=== PATIENT | female | born 1960 | race Caucasian/White ===

== ENCOUNTER 2016-09-18 14:53 | Inpatient (IN) | payer OTHER ==
--- NOTE | ~2016-09-18 | DS ---
Discharge Summary [facility] [address] [place]. [address] NAME: MANJULA CASEY : 58 STATUS : DIS IN PAT#: [id number] AGE: 56 ADM/REG DATE : 09/18/16 MR#: [id number] REPORT SERV DATE: 10/01/16 DICTATED BY: JIMMIE GREEN DATE: 09/30/16 REPORT STATUS : Draft TRANSCRIBED BY: ABIMAEL DATE: 09/30/16 Data Collection from hospitalization DISCHARGE DIAGNOSES: Acute sigmoid diverticulitis. CONSULTATIONS: None. PROCEDURES PERFORMED: CT scan of the abdomen and pelvis without contrast, 09/18/2016. MEDICATIONS: Levaquin 750 mg daily, Flagyl 500 mg three times a day, Zofran 4 mg every 4 to 6 hours as needed, and Percocet 5/325 one tablet every 4 to 6 hours as needed. CONDITION ON DISCHARGE: Stable. DISPOSITION: The patient was discharged home on a soft diet with activities as instructed. She would follow up with me, 09/29/2016. HOSPITAL COURSE: This is a 56-year-old female who presented to the emergency department with the relatively acute onset of lower abdominal pain bilaterally. The patient had never had this sort of problem in the past. She had had no recent travel or exposure to people with any digestive problems or GI illnesses. CT scan of the abdomen and pelvis showed evidence of sigmoid colon diverticulitis with inflammatory stranding and small air bubbles in the mesentery consistent with microperforations. She was admitted to the hospital at this time for further evaluation and treatment. Upon admission, IV antibiotics were started. We would manage her with fluid and electrolyte monitoring and replacement of pain and nausea medications and watch for improvement. Obviously, if she fails to improve or worsen, she may need consideration for surgical interventions. The following day, her temperature had increased during the night. She did have some fatigue. She had some loose explosive stools. Full liquids were being given. IV fluids were decreased. Over the next couple of days, her T-max was 99.2. She still had some increased pain in the evening. White count was 10.5. Her abdomen was softer and less tender. She was going to be changed to oral antibiotics. Her diet was advanced. Discharge planning was performed. On 09/22/2016, she was afebrile. She did have some episodes of hypotension. She seemed to be tolerating some solids. Discharge instructions were given. Due to her improved and stable condition, she was discharged home with the above-stated instructions. Information collected by: Hanna Reyes I submit the above information as my discharge summary. FAUSTO/ABIMAEL Jimmie Green M.D. / [id number] Discharge Summary [address] [address] NAME: MANJULA CASEY : 58 STATUS : DIS IN PAT#: [id number] AGE: 56 ADM/REG DATE : 09/18/16 MR#: [id number] REPORT SERV DATE: 10/01/16 DICTATED BY: JIMMIE GREEN DATE: 09/30/16 REPORT STATUS : Draft TRANSCRIBED BY: ABIMAEL DATE: 09/30/16 CC: Marko Grier M.D.
--- NOTE | ~2016-09-18 | HP ---
History And Physical [place] [id number] [facility] [place]. [address] NAME: MANJULA CASEY : 58 STATUS : ADM IN [facility]#: [id number] AGE: 56 ADM/REG DATE : 09/18/16 MR#: [id number] REPORT SERV DATE: 09/19/16 DICTATED BY: JIMMIE GREEN DATE: 09/19/16 REPORT STATUS : Draft TRANSCRIBED BY: MODL DATE: 09/19/16 DATE OF ADMISSION: 09/18/2016 HISTORY: A 56-year-old, white female, very healthy, presented to the ED this evening with relatively acute onset of lower abdominal pain bilaterally. The patient had never had this sort of problem. She has had no recent travel or exposure to people with any digestive problems or GI illnesses. CT evaluation and lab work have shown evidence of sigmoid colon diverticulitis with inflammatory stranding and small air bubbles in the mesentery consistent with microperforations. PAST MEDICAL HISTORY: Essentially negative. She does not have any major health issues. PAST SURGICAL HISTORY: Negative. ALLERGIES: NONE. HOME MEDICATIONS: None. SOCIAL HISTORY: She is . Lives with her . Nonsmoker. Nondrinker. LABORATORY DATA: WBCs 12.1 thousand without left shift. H and H 18.8 and 53.2, potassium 4.2, glucose 108, total bilirubin 1.4. LFTs slightly elevated including transaminases and alkaline phosphatase. PHYSICAL EXAMINATION: GENERAL: A pleasant and alert female, obviously uncomfortable. HEENT: Within normal limits. There is no thyromegaly, nodularity, nodes, masses, or tenderness. No scleral icterus. CARDIOVASCULAR: Regular rate and rhythm without murmur or gallop. CHEST: Clear bilaterally without rales, rhonchi, or rub. BREASTS: Not examined. ABDOMEN: Shows no distention or tympany. She has positive bowel sounds. There is no abdominal wall scar or hernia palpated. No hepatosplenomegaly or masses. She definitely has tenderness with guarding in the pelvis bilaterally, left greater than right without rebound. IMPRESSION: Acute sigmoid diverticulitis with microperforation. PLAN: We have already instituted broad-spectrum IV antibiotics. We will manage her with fluid and electrolyte monitoring and replacement of pain and nausea medicines and watch for improvement. Obviously, if she worsens or fails to progress, she may need consideration for surgical intervention. WR/MODL History And Physical [place] [id number] [facility] [place] [place]. [address] NAME: MANJULA CASEY : 58 STATUS : ADM IN [facility]#: [id number] AGE: 56 ADM/REG DATE : 09/18/16 MR#: [id number] REPORT SERV DATE: 09/19/16 DICTATED BY: JIMMIE GREEN DATE: 09/19/16 REPORT STATUS : Draft TRANSCRIBED BY: ABIMAEL DATE: 09/19/16 Jimmie Green M.D. / [id number] CC: Marko Grier M.D.
[2016-09-18 13:39] LABS: ASCORBIC ACID (UR NOT ORDER) NEG (NEG); BILIRUBIN, URINE NEGATIVE (NEG); ER URINALYSIS TAT 0 Hrs 25 Mins; KETONE, URINE 20 MG/DL (NEG); LEUKOCYTE ESTERASE(NOT OR NEG (NEG); NITRITE (URINE) NEG (NEG); WBC (NOT ORDERED) (RFLEX) 1 (0-5)
[2016-09-18 14:13] LABS: BASOPHILS 0.2 %; BASOPHILS ABSOLUTE 0.03 10/3/uL (0.0-0.16); EOSINOPHILS 0.2 %; EOSINOPHILS ABSOLUTE 0.03 10/3/uL (0.0-0.53); HEMATOCRIT 53.2 % (36.0-48.0); HEMOGLOBIN 18.8 g/dL (12.0-16.0); IMMATURE GRANULOCYTES 0.4 %; IMMATURE GRANULOCYTES ABSOLUTE 0.05 10/3/uL (0.0-0.11); LYMPHOCYTES 11.7 %; LYMPHOCYTES ABSOLUTE 1.41 10/3/uL (0.67-4.30); MEAN CORPUSCULAR HEMOGLOB 35.8 pg (26.0-34.0); MEAN CORPUSCULAR VOLUME 101.3 fL (80-100); MEAN PLATELET VOLUME 11.4 fL (9.2-13.0); MONOCYTES 6.2 %; MONOCYTES ABSOLUTE 0.75 10/3/uL (0.21-1.20); NEUTROPHILS 81.3 %; NEUTROPHILS ABSOLUTE 9.83 10/3/uL (2.02-8.40); PLATELET COUNT 171 10/3/uL (150-400); RBC DISTRIBUTION WIDTH 12.7 % (12.0-16.0); RED CELL COUNT 5.25 10/6/uL (4.0-5.6)
[2016-09-18 14:17] LABS: ER CBC TAT 0 Hrs 07 Mins; MEAN CORPUS HGB CONC 35.3 g/dL (32.0-36.0); WHITE BLOOD CELLS 12.1 10/3/uL (4.5-10.5)
[2016-09-18 14:18] LABS: MANUAL DIFF NO %
[2016-09-18 14:35] LABS: A/G RATIO 0.9 (0.7-1.9); ALBUMIN 4.1 G/DL (3.5-5.0); ALKALINE PHOSPHATASE 133 U/L (45-117); BUN (BLOOD UREA NITROGEN) 11 MG/DL (6-23); CALCIUM, SERUM 9.6 MG/DL (8.5-10.4); CHLORIDE, SERUM 103 MMOL/L (96-112); CO2 (CARBON DIOXIDE) 25 MMOL/L (24-34); GFR AFRICAN AMERICAN 95 ML/MIN (>=60); GFR NON AFRICAN AMERICAN 82 ML/MIN (>=60); GLOBULIN 4.4 G/DL (2.5-4.1); GLUCOSE, SERUM 108 MG/DL (60-99); SGPT(ALT) 121 U/L (5-65); SODIUM, SERUM 139 MMOL/L (135-148); TOTAL BILIRUBIN 1.4 MG/DL (0-1.2); TOTAL PROTEIN 8.5 G/DL (6.0-8.5)
[2016-09-18 14:36] LABS: POTASSIUM, SERUM 4.2 MMOL/L (3.5-5.3); SGOT(AST) 170 U/L (5-40)
[2016-09-20 09:19] LABS: BASOPHILS 0.2 %; BASOPHILS ABSOLUTE 0.02 10/3/uL (0.0-0.16); EOSINOPHILS 0.5 %; EOSINOPHILS ABSOLUTE 0.04 10/3/uL (0.0-0.53); IMMATURE GRANULOCYTES 0.3 %; IMMATURE GRANULOCYTES ABSOLUTE 0.03 10/3/uL (0.0-0.11); LYMPHOCYTES 17.4 %; LYMPHOCYTES ABSOLUTE 1.53 10/3/uL (0.67-4.30); MEAN CORPUS HGB CONC 33.8 g/dL (32.0-36.0); MEAN CORPUSCULAR HEMOGLOB 34.7 pg (26.0-34.0); MEAN CORPUSCULAR VOLUME 102.8 fL (80-100); MEAN PLATELET VOLUME 11.4 fL (9.2-13.0); MONOCYTES 8.2 %; MONOCYTES ABSOLUTE 0.72 10/3/uL (0.21-1.20); NEUTROPHILS 73.4 %; NEUTROPHILS ABSOLUTE 6.43 10/3/uL (2.02-8.40); PLATELET COUNT 154 10/3/uL (150-400); RBC DISTRIBUTION WIDTH 12.5 % (12.0-16.0); RED CELL COUNT 4.26 10/6/uL (4.0-5.6); WHITE BLOOD CELLS 8.8 10/3/uL (4.5-10.5)
[2016-09-20 09:21] LABS: HEMATOCRIT 43.8 % (36.0-48.0); HEMOGLOBIN 14.8 g/dL (12.0-16.0); MANUAL DIFF NO %
[2016-09-20 09:33] LABS: CHLORIDE, SERUM 106 MMOL/L (96-112); CO2 (CARBON DIOXIDE) 24 MMOL/L (24-34); CREATININE 0.74 MG/DL (0.55-1.02); GFR AFRICAN AMERICAN 104 ML/MIN (>=60); GFR NON AFRICAN AMERICAN 90 ML/MIN (>=60); POTASSIUM, SERUM 3.4 MMOL/L (3.5-5.3); SGOT(AST) 26 U/L (5-40); SGPT(ALT) 43 U/L (5-65); SODIUM, SERUM 141 MMOL/L (135-148); TOTAL BILIRUBIN 1.5 MG/DL (0-1.2)
[2016-09-20 09:34] LABS: A/G RATIO 0.8 (0.7-1.9); ALBUMIN 2.7 G/DL (3.5-5.0); ALKALINE PHOSPHATASE 78 U/L (45-117); BUN (BLOOD UREA NITROGEN) 3 MG/DL (6-23); CALCIUM, SERUM 8.5 MG/DL (8.5-10.4); GLOBULIN 3.5 G/DL (2.5-4.1); GLUCOSE, SERUM 172 MG/DL (60-99); TOTAL PROTEIN 6.2 G/DL (6.0-8.5)
[2016-09-21 05:20] LABS: BASOPHILS 0.2 %; BASOPHILS ABSOLUTE 0.02 10/3/uL (0.0-0.16); EOSINOPHILS 0.5 %; EOSINOPHILS ABSOLUTE 0.05 10/3/uL (0.0-0.53); HEMATOCRIT 42.7 % (36.0-48.0); HEMOGLOBIN 14.9 g/dL (12.0-16.0); IMMATURE GRANULOCYTES 0.5 %; IMMATURE GRANULOCYTES ABSOLUTE 0.05 10/3/uL (0.0-0.11); LYMPHOCYTES 17.9 %; LYMPHOCYTES ABSOLUTE 1.88 10/3/uL (0.67-4.30); MEAN CORPUS HGB CONC 34.9 g/dL (32.0-36.0); MEAN CORPUSCULAR HEMOGLOB 35.4 pg (26.0-34.0); MEAN CORPUSCULAR VOLUME 101.4 fL (80-100); MONOCYTES 10.3 %; MONOCYTES ABSOLUTE 1.08 10/3/uL (0.21-1.20); NEUTROPHILS 70.6 %; NEUTROPHILS ABSOLUTE 7.43 10/3/uL (2.02-8.40); PLATELET COUNT 146 10/3/uL (150-400); RBC DISTRIBUTION WIDTH 12.5 % (12.0-16.0); RED CELL COUNT 4.21 10/6/uL (4.0-5.6); WHITE BLOOD CELLS 10.5 10/3/uL (4.5-10.5)
[2016-09-21 05:21] LABS: MANUAL DIFF NO %
[2016-09-21 05:37] LABS: A/G RATIO 0.7 (0.7-1.9); ALBUMIN 2.6 G/DL (3.5-5.0); ALKALINE PHOSPHATASE 84 U/L (45-117); BUN (BLOOD UREA NITROGEN) 3 MG/DL (6-23); CALCIUM, SERUM 8.5 MG/DL (8.5-10.4); CHLORIDE, SERUM 106 MMOL/L (96-112); CO2 (CARBON DIOXIDE) 24 MMOL/L (24-34); CREATININE 0.59 MG/DL (0.55-1.02); GFR AFRICAN AMERICAN 118 ML/MIN (>=60); GFR NON AFRICAN AMERICAN 102 ML/MIN (>=60); GLOBULIN 3.6 G/DL (2.5-4.1); POTASSIUM, SERUM 3.9 MMOL/L (3.5-5.3); SGOT(AST) 21 U/L (5-40); SGPT(ALT) 37 U/L (5-65); SODIUM, SERUM 139 MMOL/L (135-148); TOTAL PROTEIN 6.2 G/DL (6.0-8.5)
[2016-09-21 05:38] LABS: GLUCOSE, SERUM 130 MG/DL (60-99)
[2016-09-22] MEDS ORDERED: LEVAQUIN750 MG PO (14:05)
[2016-09-22] MEDS ORDERED: FLAG500TAB PO (14:05)
[2016-09-22] MEDS ORDERED: ZOFRAN4 PO (14:06)
[2016-09-22] MEDS ORDERED: PCET PO (14:06)
== END 2016-09-22 14:30 | disposition home or self-care (01) | DRG 392 ==
LOC: ER 14:53 → 5SO 16:50
PROVIDERS: Physician Assistant; Specialist
DX: K57.20 Diverticulitis of large intestine with perforation and abscess without bleeding (principal)
CPT/HCPCS: 74176; 80053; 81001; 83690; 85025; 87040; 87150; 96365; 96375; 99291; A9270-GY; J1170; J1956; J2405; J2543